=== PATIENT | female | born 1970 | race American Indian/Alaskan Native ===

== ENCOUNTER 2018-11-21 17:41 | Inpatient (IN) | payer MEDICAID ==
--- NOTE | 2018-11-21 18:15 | ED PDOC ---
Arrival/HPI - General Chief Complaint: Shortness Of Breath Time Seen by Provider: 11/21/18 17:44 Historian: Patient - History of Present Illness Narrative History of Present Illness (Text): 11/21/18 18:38 48 y/o female with PMH of HTN, DM presents to the Emergency department sent by PMD Dr. Hicks for evaluation of SOB and peripheral edema x 6 months. Pt arrives with a prescription from Dr. Hicks requesting evaluation and treatment for possible CHF. She saw Dr. Hicks 2 weeks ago for similar complaints, prescribed steroids and HCTZ without relief. Pt states she takes her medications as prescribed. Associated bilateral lower extremity and lower abdomen pitting edema. Denies fever, chills, cough, congestion, chest pain, abdominal pain, nausea, vomiting, headache, vision changes, urinary symptoms, back pain, neck pain, or any other associated symptoms. Past Medical History - Provider Review Nursing Documentation Reviewed: Yes - Infectious Disease Hx of Infectious Diseases: None - Cardiac Hx Cardiac Disorders: Yes Hx Hypertension: Yes - Pulmonary Hx Respiratory Disorders: Yes Hx Pneumonia: Yes - Neurological Hx Neurological Disorder: No - HEENT Hx HEENT Disorder: No - Renal Hx Renal Disorder: No - Endocrine/Metabolic Hx Endocrine Disorders: Yes Hx Diabetes Mellitus Type 2: Yes - Hematological/Oncological Hx Blood Disorders: No - Integumentary Hx Dermatological Disorder: No - Musculoskeletal/Rheumatological Hx Musculoskeletal Disorders: No - Gastrointestinal Hx Gastrointestinal Disorders: Yes Other/Comment: LAP BAND; REMOVED - Genitourinary/Gynecological Hx Genitourinary Disorders: No - Psychiatric Hx Psychophysiologic Disorder: No Hx Substance Use: No - Surgical History Hx Section: Yes Other/Comment: lap band, cyst removal - Anesthesia Hx Anesthesia: No Hx Anesthesia Reactions: No Hx Malignant Hyperthermia: No - Suicidal Assessment Feels Threatened In Home Enviroment: No Family/Social History - Physician Review Nursing Documentation Reviewed: Yes Family/Social History: No Known Family HX Smoking Status: Never Smoked Hx Alcohol Use: No Hx Substance Use: No Allergies/Home Meds Allergies/Adverse Reactions: Allergies azithromycin [From Zithromax Z-Marcello] Allergy (Verified 11/21/18 17:55) ANAPHYLAXIS Home Medications: Home Meds Medication Instructions Recorded Confirmed Albuterol 0.083% [Albuterol 0.083% 3 ml NEB Q6 PRN 11/21/18 11/21/18 Inhal Lu (2.5 mg/3 ml) UD] Albuterol HFA [Ventolin HFA 90 2 puff NEB Q6 PRN 11/21/18 11/21/18 mcg/actuation (8 g)] Enalapril Maleate [Vasotec] 5 mg PO DAILY 11/21/18 11/21/18 Montelukast [Singulair] 10 mg PO HS 11/21/18 11/21/18 amLODIPine [Norvasc] 10 mg PO DAILY 11/21/18 11/21/18 hydroCHLOROthiazide [Hydrodiuril] 25 mg PO DAILY 11/21/18 11/21/18 metFORMIN [glucOPHAGE] 500 mg PO BID 11/21/18 11/21/18 Review of Systems - Review of Systems Constitutional: Fatigue. absent: Fevers Eyes: Normal. absent: Vision Changes, Photophobia ENT: Normal. absent: Sore Throat, Sinus Congestion Respiratory: SOB. absent: Cough, Sputum, Wheezing Cardiovascular: Orthopnea, Other (peripheral edema). absent: Chest Pain, Palpitations, Syncope Gastrointestinal: Other (abdominal swelling). absent: Abdominal Pain, Nausea, Vomiting Genitourinary Female: Normal. absent: Dysuria, Frequency Musculoskeletal: Normal. absent: Arthralgias, Back Pain, Neck Pain, Joint Swelling Skin: Normal. absent: Rash, Cellulitis Neurological: Normal. absent: Headache, Dizziness Physical Exam Vital Signs Reviewed: Yes Vital Signs Temp 11/21/18 17:59 98.4 F Temperature: Afebrile Blood Pressure: Normal Pulse: Regular Respiratory Rate: Normal Appearance: Positive for: Non-Toxic, Uncomfortable, Other (SOB; obese) Pain Distress: None Mental Status: Positive for: Alert and Oriented X 3 - Systems Exam Head: Present: Atraumatic, Normocephalic Pupils: Present: PERRL Extroacular Muscles: Present: EOMI Conjunctiva: Present: Normal Mouth: Present: Moist Mucous Membranes Neck: Present: Normal Range of Motion. No: Meningeal Signs Respiratory/Chest: Present: Decreased Breath Sounds (bilaterally), Rales (bilateral bases). No: Respiratory Distress, Accessory Muscle Use Cardiovascular: Present: Regular Rate and Rhythm, Normal S1, S2, Peripheal Pulses Present Abdomen: Present: Distention (lower abd distention ), Normal Bowel Sounds, Other (lower abdomen pitting edema). No: Tenderness, Peritoneal Signs, Rebound, Guarding Upper Extremity: Present: Normal Inspection, Normal ROM, NORMAL PULSES, Neurovascularly Intact, Capillary Refill < 2s. No: Cyanosis, Edema, Temperature Abnormalties Lower Extremity: Present: Normal Inspection, Edema (bilateral 2+ pitting edema to feet and legs), NORMAL PULSES, Normal ROM, Neurovascularly Intact, Capillary Refill < 2 s. No: Tenderness, Erythema, Deformity, Temperature Abnormalties Neurological: Present: GCS=15, CN II-XII Intact, Speech Normal, Motor Func Grossly Intact, Normal Sensory Function, Gait Normal Skin: Present: Warm, Dry, Normal Color. No: Rashes Psychiatric: Present: Alert, Oriented x 3, Normal Insight, Normal Concentration, Normal Affect, Normal Mood Medical Decision Making ED Course and Treatment: Initial Plan: * CBC, CMP * Coags * Cardiac Iso * BNP * CXR * EKG EKG shows NSR at 96; left atrial enlargement; low voltage QRS; Normal intervals; No STEMI, nonspecific ST/T wave changes; troponin negative 20:34 CXR read as cardiomegaly, no lobar pneumonia by tx Bloodwork reviewed, no leukocytosis; elevated BNP. 40mg Lasix given. Otherwise unremarkable. Dimer negative UA unremarkable Pt continues to be dyspneic but reports mild improvement in symptoms. O2sat in low 90s without oxygen therapy. Will seek admission for further evaluation. 21:55 Spoke with patient's PMD Dr. Hicks who accepted patient for inpatient observation to telemetry floor with diagnosis of dyspnea, elevated BNP, and peripheral edema. Pt updated with change in disposition. Resting comfortably in stretcher with stable vital signs at this time. On 2L NC. - Lab Interpretations Lab Results: 11/21/18 20:00 11/21/18 20:00 Lab Results 11/22/18 08:25: Hemoglobin A1c 7.8 H 11/22/18 08:25: Iron 21 L, TIBC 430, % Saturation 5 L 11/22/18 08:25: Lactate Dehydrogenase 452, Total Creatine Kinase 44, Troponin I 0.01 D, NT-Pro-B Natriuret Pep 421, Triglycerides 77, Cholesterol 124 L, LDL Cholesterol Direct 80, HDL Cholesterol 33, Vitamin B12 646, Folate > 20.0 11/22/18 07:25: POC Glucose (mg/dL) 140 H 11/21/18 21:24: Urine Color Yellow, Urine Appearance Clear, Urine pH 6.5, Ur Specific [place] 1.010, Urine Protein Negative, Urine Glucose (UA) Negative, Urine Ketones Negative, Urine Blood Trace-lysed H, Urine Nitrate Negative, Urine Bilirubin Negative, Urine Urobilinogen 0.2, Ur Leukocyte Esterase Moderate H, Urine RBC 2 - 5 H, Urine WBC 5 - 10 H, Ur Epithelial Cells Many H 11/21/18 20:00: pO2 101 H, VBG pH 7.39, VBG pCO2 65.0 H, VBG HCO3 39.3 H, VBG Total CO2 41.3 H, VBG O2 Sat (Calc) 98.3 H, VBG Base Excess 11.5 H, VBG Pot assium 3.3 L, Sodium 139.0, Chloride 99.0, Glucose 119 H, Lactate 1.1, FiO2 21.0, Venous Blood Potassium 3.3 L 11/21/18 20:00: PT 12.2, INR 1.10, APTT 27.9, D-Dimer, Quantitative 217 11/21/18 20:00: Sodium 138, Chloride 97 L, Potassium 3.5 L, Carbon Dioxide 37 H, Anion Gap 7 L, BUN 14, Creatinine 0.6 L, Est GFR ( Amer) > 60, Est GFR (Non-Af Amer) > 60, Random Glucose 115 H, Calcium 8.7, Magnesium 1.7, Total Bilirubin 0.9, AST 29, ALT 28, Alkaline Phosphatase 64, Lactate Dehydrogenase 506, Total Creatine Kinase 51, Troponin I 0.02, NT-Pro-B Natriuret Pep 535 H, Total Protein 6.4, Albumin 3.4, Globulin 3.1, Albumin/Globulin Ratio 1.1 11/21/18 20:00: WBC 6.4, RBC 4.82, Hgb 11.2 L, Hct 37.7, MCV 78.2 L D, MCH 23.2 L, MCHC 29.7 L, RDW 17.0 H, Plt Count 283, MPV 9.4, Neut % (Auto) 63.6, Lymph % (Auto) 25.9, [place] % (Auto) 9.1 H, Eos % (Auto) 1.1 L, Baso % (Auto) 0.3, Lymph # (Auto) 1.7, [place] # (Auto) 0.6, Eos # (Auto) 0.1, Baso # (Auto) 0.02, Absolute Neuts (auto) 4.04 I have reviewed the lab results: Yes - RAD Interpretation Radiology Orders: 11/21/18 18:14 CHEST PORTABLE [RAD] Stat - EKG Interpretation EKG Interpretation (Text): 11/21/18 20:37 NSR at 96; left atrial enlargement; low voltage QRS; Normal intervals; No STEMI, nonspecific ST/T wave changes Interpreted by ED Physician: Yes Type: 12 lead EKG Disposition/Present on Arrival - Present on Arrival Any Indicators Present on Arrival: No History of DVT/PE: No History of Uncontrolled Diabetes: No Urinary Catheter: No History of Decub. Ulcer: No History Surgical Site Infection Following: None - Disposition Have Diagnosis and Disposition been Completed?: Yes Diagnosis: Dyspnea, Peripheral edema, Hypoxia, Elevated brain natriuretic peptide (BNP) level Disposition: HOSPITALIZED Disposition Time: 21:30 Patient Plan: Admission Patient Problems: Current Active Problems Problem Status Onset Dyspnea Acute Elevated brain natriuretic peptide (BNP) level Acute Hypoxia Acute Peripheral edema Acute Condition: STABLE
--- NOTE | 2018-11-21 19:01 | CARD ---
APPROVED REPORT Date of service: 11/21/2018 EKG Measurement Heart [id number] <Conclusion> Normal sinus rhythm Possible Left atrial enlargement Low voltage QRS Left anterior fascicular block Cannot rule out Anteroseptal infarct, age undetermined Abnormal ECG
[2018-11-21 20:24] LABS: BASO # 0.02 K/mm3 (0.0-2.0); BASO % 0.3 % (0.0-3.0); EOS # 0.1 (0.0-0.7); EOS % 1.1 % (1.5-5.0); HEMOGLOBIN 11.2 g/dL (12.0-16.0); LYMPH # 1.7 (1.2-3.4); LYMPH % 25.9 % (22.0-35.0); MEAN CELL VOLUME 78.2 fl (80.0-105.0); MEAN CORPUSCULAR HEMOGLOBIN 23.2 pg (25.0-35.0); MEAN CORPUSCULAR HGB CONC 29.7 g/dl (31.0-37.0); MEAN PLATELET VOLUME 9.4 fl (7.0-11.0); MONO # 0.6 (0.1-0.6); MONO % 9.1 % (1.0-6.0); RBC 4.82 10^6/uL (3.5-6.1); WHITE BLOOD COUNT 6.4 10^3/uL (4.5-11.0)
[2018-11-21 20:25] LABS: VENOUS BLOOD GAS BASE EXCESS 11.5 mmol/L (0.0-2.0); VENOUS BLOOD GAS PO2 101 mm/Hg (30-55); VENOUS BLOOD PH 7.39 (7.32-7.43)
[2018-11-21 20:31] LABS: ALB/GLOB RATIO 1.1 (1.1-1.8); ALBUMIN 3.4 g/dL (3.0-4.8); ALT/SGPT 28 U/L (7-56); AST/SGOT 29 U/L (14-36); BLOOD UREA NITROGEN 14 mg/dL (7-21); CALCIUM 8.7 mg/dL (8.4-10.5); GFR NON-AFRICAN AMERICAN > 60
[2018-11-21 20:38] LABS: INR 1.1; PARTIAL THROMBOPLASTIN TIME 27.9 Seconds (26.9-38.3); PROTHROMBIN TIME 12.2 SECONDS (9.4-12.5)
[2018-11-21 20:42] LABS: B-TYPE NATRIURETIC PEPTIDE 535 pg/mL (0-450); TROPONIN I 0.02 ng/mL
[2018-11-21 21:28] LABS: PH,URINE 6.5 (4.7-8.0); URINE BILIRUBIN NEGATIVE (NEGATIVE); URINE BLOOD TRACE-LYSED (NEGATIVE); URINE GLUCOSE (UA) NEGATIVE (NEGATIVE); URINE LEUKOCYTE ESTERASE MODERATE Leu/uL (NEGATIVE); URINE PROTEIN NEGATIVE mg/dL (<30 mg/dL); URINE UROBILINOGEN 0.2 E.U./dL (<1 E.U./dL)
[2018-11-21 21:29] LABS: URINE COLOR YELLOW (YELLOW)
[2018-11-21 21:30] LABS: URINE APPEARANCE CLEAR (CLEAR); URINE EPITHELIAL CELLS MANY /hpf (0-5)
[2018-11-21] MEDS ORDERED: Potassium Chloride 20 mEq ER Tab PO STA (22:00)
[2018-11-22] MEDS: Albuterol-Ipratrop 3 mg / 0.5 (3 ml) UD IH SCH ×2 (07:59→14:27)
[2018-11-22] MEDS: Insulin Reg-LOW-Coverage SC SCH ×5 (08:30→22:24)
[2018-11-22 08:49] LABS: HDL CHOLESTEROL 33 mg/dL (29-60); IRON 21 ug/dL (45-180)
[2018-11-22 09:00] LABS: B-TYPE NATRIURETIC PEPTIDE 421 pg/mL (0-450); TROPONIN I 0.01 ng/mL
[2018-11-22 09:03] LABS: % IRON SATURATION 5 % (20-55); TOTAL IRON BINDING CAPACITY 430 ug/dL (265-497)
[2018-11-22 09:06] LABS: LDL CHOLESTEROL 80 mg/dL (0-129)
[2018-11-22] MEDS: Potassium Chloride 20 mEq ER Tab PO SCH (10:24)
[2018-11-22] MEDS: MethylPREDNISolone 40 mg Vial IVP SCH ×2 (10:27→21:31)
[2018-11-22] MEDS: metOLazone 5 MG TAB PO SCH (10:30)
--- NOTE | 2018-11-22 10:32 | RAD ---
Date of service: 11/21/2018 HISTORY: SOB COMPARISON: 07/21/2018 TECHNIQUE: 1 view obtained. FINDINGS: LUNGS: No active pulmonary disease. PLEURA: No significant pleural effusion identified, no pneumothorax apparent. CARDIOVASCULAR: No aortic atherosclerotic calcification present. Moderate cardiomegaly and moderate vascular congestion OSSEOUS STRUCTURES: No significant abnormalities. VISUALIZED UPPER ABDOMEN: Normal. OTHER FINDINGS: None. IMPRESSION: Moderate cardiomegaly and moderate vascular congestion
[2018-11-22] MEDS ORDERED: Potassium Chloride 20 mEq ER Tab PO ONE (12:00)
[2018-11-22 12:58] LABS: FOLATE > 20.0 ng/mL
[2018-11-22] MEDS ORDERED: Albuterol-Ipratrop 3 mg / 0.5 (3 ml) UD IH PRN (15:54)
--- NOTE | 2018-11-22 17:37 | CON ---
DATE: 11/22/2018 PULMONARY CONSULT NOTE REFERRING PHYSICIAN: Valeria Hicks MD REASON FOR CONSULT: Shortness of breath and hypoxia. HISTORY OF PRESENT ILLNESS: This is a 48-year-old female with past medical history significant for hypertension, diabetes, asthma, who presented to emergency room for evaluation of shortness of breath and peripheral edema for the past 6 months. The patient reports that she was seen by primary physician about 2 weeks ago for similar complaints, was given steroids and hydrochlorothiazide, which provided no relief. The patient reports that she has had history of lap-band surgery, which was removed and was pending consult for gastric sleeve surgery when she was noted with generalized edema. The patient reports that she does snore, states she does not have a cough; has some shortness of breath with exertion. PAST MEDICAL HISTORY: As per history of present illness. ALLERGIES: AZITHROMYCIN. FAMILY HISTORY: Father and brother had heart disease. Mother, triple heart bypass. SOCIAL HISTORY: Nonsmoker. No EtOH abuse. No illicit drug use. MEDICATIONS: Reviewed. Tylenol 650 mg every 4 hours p.r.n. fever and pain, DuoNeb 3 mL inhalation every 6 hours, aspirin 81 mg daily, Pepcid 40 mg at bedtime, Lasix 40 mg IV push every 8 hours, Humulin R sliding scale a.c. and at bedtime, lisinopril 5 mg daily, Claritin 10 mg daily, metformin 500 mg twice a day, Solu-Medrol 40 mg every 12 hours, metolazone 5 mg daily, Singulair 10 mg at bedtime, potassium 20 mEq daily, and spironolactone 25 mg twice a day. REVIEW OF SYSTEMS: No headache, rhinitis, cough, chest pain, abdominal pain, nausea, vomiting, diarrhea, or leg pain reported. Reports having bilateral lower extremity edema, abdominal edema. Reports snoring, shortness of breath with exertion. PHYSICAL EXAMINATION GENERAL: No acute distress. VITAL SIGNS: Blood pressure 137/82, pulse 85, temperature 98, oxygen saturation 95%. HEENT: Moist mucous membranes. Mallampati score of 4. NECK: Supple. No JVD. LUNGS: Decreased breath sounds at the bases. Few scattered rhonchi. CARDIOVASCULAR: S1 and S2. ABDOMEN: Soft and nontender. Positive edema. EXTREMITIES: +4 bilateral lower extremity edema. NEUROLOGIC: Awake, alert, verbal; following commands. LABORATORY DATA: Reviewed. WBC 6.4, RBC 4.82, hemoglobin 11.2, hematocrit 37.7, and platelets 283. PT 12.2, INR 1.1, APTT 27.9, D-dimer 217, pO2 of 101. Venous blood gas; pH 7.39, venous blood gas pCO2 of 65, venous blood gas HCO3 of 39.3, and FiO2 of 21. Sodium 138, potassium 3.5, chloride 97, carbon dioxide 37, anion gap 7, BUN 14, creatinine 0.6, GFR greater than 60, POC glucose 140, random glucose 115, and hemoglobin A1c 7.8. Calcium 8.7, magnesium 1.7, iron 21, TIBC 430, percent saturation 5, total bilirubin 0.9. AST 29, ALT 28, alkaline phosphatase 64, lactate dehydrogenase 452, total creatine kinase 44, troponin 0.01, proBNP 421, triglycerides 77, cholesterol 124, LDL cholesterol 80, HDL cholesterol 33, vitamin B12 of 646, folate greater than 20. Urinalysis shows urine blood trace, urine leukocyte esterase moderate, urine RBCs 2-5, urine WBC's 5-10, and urine epithelial cells many. EKG shows normal sinus rhythm, possible left atrial enlargement, low voltage QRS, left anterior fascicular block. Chest x-ray shows moderate cardiomegaly and moderate vascular congestion. Echocardiogram report pending. IMPRESSION AND PLAN: Asthma, hypertension, diabetes mellitus, and possible heart failure. Echocardiogram report pending. Agree with current treatments. Continue antihistamine, diuretics, inhaled bronchodilators, steroids, and leukotriene inhibitors. We will place the patient on Lovenox for deep venous thrombosis prophylaxis. Cardiology followup. We recommend this patient have sleep study as outpatient. The patient reports she recently had pulmonary function test when she was diagnosed with asthma. Head of bed elevated at 45 degrees and fall precautions. The patient was seen and examined with Dr. Zaragoza. Discussed assessment and plan as described above. The patient was seen and examined with Kirby Nuñez, nurse practitioner. Discussed assessment and plan as described above. Thank you for this consult. We will follow with you. Kirby Nuñez APN Donovan Zaragoza MD [facility] # [id number]
--- NOTE | 2018-11-22 19:22 | CARD ---
APPROVED REPORT Date of service: 11/22/2018 EXAM: Two-dimensional and M-mode echocardiogram with Doppler and color Doppler. INDICATION Dyspnea 2D DIMENSIONS Left Atrium (2D)4.7 (1.6-4.0cm)IVSd1.2 (0.7-1.1cm) LVDd4.1 (3.9-5.9cm)PWd1.5 (0.7-1.1cm) LVDs2.8 (2.5-4.0cm)FS (%) 31.4 % LVEF (%)59.7 (>50%) M-Mode DIMENSIONS Aortic Root3.50 (2.2-3.7cm)Aortic Cusp Exc.1.90 (1.5-2.0cm) Aortic Valve AoV Peak Gtkohxll615.0cm/Ronni Peak GR.8mmHg Mitral Valve MV E Swnczmms09.3cm/sMV A Fdrsyhhc127.0cm/sE/A ratio0.7 TDI Lateral E' Peak V6.82cm/sE/Lateral E'14.0E/Medial E'0.0 Pulmonary Valve PV Peak Ksvzbgmk13.2cm/sPV Peak Grad.1mmHg Tricuspid Valve TR Peak Efnljmwv509yg/sRAP VIYOLRVC97pfLyRE Peak Gr.22mmHg [id number] LEFT VENTRICLE The left ventricle is normal size. There is mild to moderate concentric left ventricular hypertrophy. The left ventricular function is normal.EF-55-60% There is normal LV segmental wall motion. Transmitral Doppler flow pattern is Grade III-reversible restrictive diastolic dysfunction. No left ventricle thrombus noted on this study. There is no ventricular septal defect visualized. There is no left ventricular aneurysm. There is no mass noted in the left ventricle. RIGHT VENTRICLE The right ventricle is severely dilated. There is normal right ventricular wall thickness. Systolic function of RV is severely reduced. ATRIA The left atrium is moderately dilated. The right atrium is mildly dilated. The interatrial septum is intact with no evidence for an atrial septal defect. AORTIC VALVE The aortic valve is thickened but opens well. There is trace aortic regurgitation. There is no aortic valvular stenosis. There is no aortic valvular vegetation. MITRAL VALVE The mitral valve is thickened but opens well. Mitral regurgitation is trace to mild. There is no mitral valve stenosis. There is no evidence of mitral valve prolapse. TRICUSPID VALVE The tricuspid valve leaflets are thickened , but open well. There is mild tricuspid regurgitation.RVSP-32 mmof Hg. There is no tricuspid valve stenosis. There is no tricuspid valve prolapse or vegetation. PULMONIC VALVE The pulmonic valve is borderline thickened. There is trace pulmonic valvular regurgitation. There is no pulmonic valvular stenosis. GREAT VESSELS The aortic root is normal in size. The ascending aorta is normal in size. The pulmonary artery is normal. The IVC is normal in size and collapses >50% with inspiration. PERICARDIAL EFFUSION There is no pleural effusion. There is a trace pericardial effusion. <Conclusion> The left ventricle is normal size. There is mild to moderate concentric left ventricular hypertrophy. The left ventricular function is normal.EF-55-60% The right ventricle is severely dilated. There is trace aortic regurgitation. Mitral regurgitation is trace to mild. There is mild tricuspid regurgitation.RVSP-32 mmof Hg. The IVC is normal in size and collapses >50% with inspiration. There is a trace pericardial effusion.
--- NOTE | 2018-11-22 19:51 | CON ---
DATE: 11/22/2018 CONSULT SERVICE: Cardiology. REASON FOR CONSULTATION AND FOLLOWUP: Cardiac evaluation. Admitted with shortness of breath progressively worsening over 6 months and gaining weight and peripheral edema of more than 6 months. Status post gastric sleeve. BRIEF CLINICAL HISTORY: This 48-year-old morbidly obese female with past medical history significant for hypertension and diabetes came to the emergency room after being sent by Dr. Hicks's office because of progressively worsening shortness of breath and gaining weight. The patient was sent [address] Hicks's office and given some steroid and hydrochlorothiazide, but the patient was still gaining weight and she decided to come to the emergency room after calling Dr. Hicks. Denies any chest pain. Denies any palpitation, but complained of shortness of breath. PAST MEDICAL HISTORY: Significant for diabetes, hypertension, hyperlipidemia, morbid obesity, status post gastric sleeve in July. Since then, the patient rather than losing weight is gaining more weight. PAST SURGICAL HISTORY: Significant for gastric sleeve operation in July. FAMILY HISTORY: Nothing significant for coronary artery disease. RECENT CARDIAC WORKUP: The patient was seen by Dr. Salo Trimble, tangible personal property appraiser at [facility] and preop evaluation, the patient had an echo done, but a stress test could not be done and according to her, the echo shows essentially normal and she cleared the patient to go for surgery. CURRENT MEDICATION: The patient at home was taking hydrochlorothiazide 25 mg daily, enalapril 5 mg daily, albuterol inhaler 2 puffs daily, metformin 500 mg twice a day, Singulair 10 mg daily and amlodipine 10 mg daily. REVIEW OF SYSTEMS: As per HPI. PHYSICAL EXAMINATION: GENERAL: Height of the patient 5 feet 3 inches. Weight of the patient 340 pounds. Body mass index 60 kg/m2. VITAL SIGNS: Temperature afebrile. Heart rate 88 and blood pressure 142/85. HEENT: PERRLA. Extraocular muscles intact. NECK: Supple. No carotid bruit. No thyromegaly. CHEST: Clear to auscultation. EXTREMITIES: 2 to 3+ pedal edema noted. LABORATORY DATA: EKG shows normal sinus at the rate of 96, poor RR progression. Blood workup; WBC 6.4, hemoglobin 11.2, hematocrit 37.7 and platelet count 283. Chemistry shows sodium 138, potassium 3.5, chloride 97, carbon dioxide 37, anion gap of 7, BUN 14, creatinine 0.6 and troponin 0.01 negative. IMPRESSION: A 48-year-old morbidly obese female, body mass index 60 kg/m2 admitted with generalized anasarca after having gastric sleeve operation and progressively worsening shortness of breath, BNP marginally elevated, but the patient has generalized anasarca. Hypertension, hyperlipidemia and diabetes. RECOMMENDATION: We will aggressively diurese the patient and echo to assess LV function, lipid profile, TSH and hemoglobin A1c. Supplement potassium as needed and monitor closely. We will add also Zaroxolyn and increase the Lasix to every 8 hours and get an echo. Once the patient becomes euvolemic consider stress test before she goes home. We will get also an echo to assess LV function. We will give an additional K-Dur and the patient. We will give aggressive diuresis with Zaroxolyn and potassium and with Lasix. Further recommendation depending upon the hospital course. We will follow with you. Thank you Dr. Hicks for providing us the opportunity in taking care of the patient, Kadi Pedroza. Donovan Kennedy MD
[2018-11-22] MEDS: Arformoterol 15 mcg/2 ml Inh Sol IH SCH (21:10)
[2018-11-22] MEDS: Budesonide 0.5 mg/2 ml Inhal Susp UD IH SCH (21:10)
[2018-11-23 07:18] LABS: HEMOGLOBIN 11.9 g/dL (12.0-16.0); MEAN CELL VOLUME 78.3 fl (80.0-105.0); MEAN CORPUSCULAR HEMOGLOBIN 22.7 pg (25.0-35.0); MEAN PLATELET VOLUME 10.1 fl (7.0-11.0); RBC 5.25 10^6/uL (3.5-6.1); WHITE BLOOD COUNT 6.4 10^3/uL (4.5-11.0)
[2018-11-23 07:34] LABS: BLOOD UREA NITROGEN 20 mg/dL (7-21); CALCIUM 8.8 mg/dL (8.4-10.5); GFR NON-AFRICAN AMERICAN > 60
[2018-11-23] MEDS: Budesonide 0.5 mg/2 ml Inhal Susp UD IH SCH ×2 (08:00→20:13)
[2018-11-23] MEDS: Arformoterol 15 mcg/2 ml Inh Sol IH SCH ×2 (08:00→20:13)
--- NOTE | 2018-11-23 08:37 | CP.PCM.PN ---
Subjective - Date & Time of Evaluation Date of Evaluation: 11/23/18 Time of Evaluation: 06:35 - Subjective Subjective: Awake, alert, no distress Reason for consultation and follow up: Cardiac evaluation of worsening shortness of breath, gaining weight and peripheral edema, history of hypertension, diabetes, status post gastric sleeve. Seen and examined by me and Dr. Kennedy Objective - Vital Signs/Intake and Output Vital Signs (last 24 hours): Temp Pulse Resp BP Pulse Ox 97.8 F 99 H 20 121/74 94 L 11/23/18 05:51 11/23/18 05:51 11/23/18 05:51 11/23/18 05:51 11/23/18 05:51 Intake and Output: 11/23/18 11/23/18 06:59 18:59 Intake Total 600 Output Total 3 Balance 597 - Medications Medications: Current Medications Acetaminophen (Tylenol 325mg Tab) 650 mg PO Q4H PRN PRN Reason: pain fever Albuterol/Ipratropium (Duoneb 3 Mg/0.5 Mg (3 Ml) Ud) 3 ml IH [id number] PRN PRN Reason: Shortness of Breath Arformoterol Tartrate (Brovana) 15 mcg IH [id number] [facility] Last Admin: 11/23/18 08:00 Dose: 15 mcg Aspirin (Ecotrin) 81 mg PO DAILY [facility] Last Admin: 11/22/18 10:26 Dose: 81 mg Budesonide (Pulmicort Respules) 0.5 mg IH [id number] [facility] Last Admin: 11/23/18 08:00 Dose: 0.5 mg Enoxaparin Sodium (Lovenox) 40 mg SC DAILY [facility]; Protocol Famotidine (Pepcid) 40 mg PO HS [facility] Last Admin: 11/22/18 21:30 Dose: 40 mg Furosemide (Lasix) 40 mg IVP 0600,1400,2200 [facility] Last Admin: 11/23/18 05:16 Dose: 40 mg Insulin Human Regular (Humulin R Low) 0 units SC [facility]; Protocol Last Admin: 11/22/18 22:24 Dose: Not Given Lisinopril (Zestril) 5 mg PO DAILY [facility] Last Admin: 11/22/18 10:25 Dose: 5 mg Loratadine (Claritin) 10 mg PO DAILY [facility] Last Admin: 11/22/18 10:26 Dose: 10 mg Metformin HCl (Glucophage) 500 mg PO BID [facility] Last Admin: 11/22/18 17:57 Dose: 500 mg Methylprednisolone (Solu-Medrol) 40 mg IVP Q12 [facility] Last Admin: 11/22/18 21:31 Dose: 40 mg Metolazone (Zaroxolyn) 5 mg PO DAILY [facility] Stop: 11/24/18 23:59 Last Admin: 11/22/18 10:30 Dose: 5 mg Montelukast Sodium (Singulair) 10 mg PO HS [facility] Last Admin: 11/22/18 21:30 Dose: 10 mg Potassium Chloride (K-Dur 20 Meq Er Tab) 20 meq PO DAILY [facility] Last Admin: 11/22/18 10:24 Dose: 20 meq Spironolactone (Aldactone) 25 mg PO BID [facility] Last Admin: 11/22/18 17:55 Dose: 25 mg - Labs Labs: 11/23/18 07:00 11/23/18 07:00 PT 12.2 SECONDS (9.4-12.5) 11/21/18 20:00 INR 1.10 11/21/18 20:00 APTT 27.9 Seconds (26.9-38.3) 11/21/18 20:00 - Constitutional Appears: Non-toxic, No Acute Distress - Head Exam Head Exam: NORMAL INSPECTION, NORMOCEPHALIC - Eye Exam Eye Exam: Normal appearance Pupil Exam: NORMAL ACCOMODATION - ENT Exam ENT Exam: Mucous Membranes Moist, Normal Exam - Respiratory Exam Respiratory Exam: Decreased Breath Sounds, NORMAL BREATHING PATTERN - Cardiovascular Exam Cardiovascular Exam: REGULAR RHYTHM, +S1, +S2 - GI/Abdominal Exam GI & Abdominal Exam: Soft, Normal Bowel Sounds - Extremities Exam Extremities Exam: Full ROM Additional comments: 2+edema - Neurological Exam Neurological Exam: Alert, Awake, Oriented x3 - Psychiatric Exam Psychiatric exam: Normal Affect, Normal Mood - Skin Skin Exam: Dry, Normal Color, Warm Assessment and Plan - Assessment and Plan (Free Text) Assessment: A 48 year old morbidly obese female who came in to the ER due progressive shortness of breath and peripheral edema for the past 6 months. She was sent by Dr. Hicks for further evaluation and treatment. History of hypertension, diabetes, hyperlipidemia, morbid obesity post gastric sleeve last July 2018. However, since then she was gaining weight with generalized anasarca. Echo done and showed mild to moderate concentric LVH, LVEF 55-60%,severely dilated RV,trace aortic regurgitation, trace to mild mitral regurgitation, mild tricuspid regurgitation, RVSP 32mmHg. Chest X ray showed moderate cardiomegaly, moderate vascular congestion. Generalized anasarca post gastric sleeve. Aggressively diurese. Plan: Feels better, denies shortness of breath Continue to diurese Tachycardia, will start low dose betablocker Blood pressure stable On ASA 81 mg daily,Lovenox 40 mg daily, Lasix 40 mg TID Lisinopril 5 mg daily, Solumedrol 40 mg every 12 hours Zaroxylyn 5m g daily, Kdur 20 meq daily, Aldactone 25 mg TID Continue current treatment Continue current medications Pulmonary on consult Will follow up Plan and treatment discussed with Dr. Kennedy
[2018-11-23] MEDS: Insulin Reg-LOW-Coverage SC SCH ×4 (09:06→21:09)
[2018-11-23] MEDS: MethylPREDNISolone 40 mg Vial IVP SCH ×2 (10:58→21:59)
[2018-11-23] MEDS: Enoxaparin 40 mg Syringe SC SCH (10:58)
[2018-11-23] MEDS: Potassium Chloride 20 mEq ER Tab PO SCH (10:58)
[2018-11-23] MEDS: metOLazone 5 MG TAB PO SCH (11:47)
--- NOTE | 2018-11-23 12:59 | PN ---
DATE: 11/23/2018 PULMONARY PROGRESS NOTE REFERRING PHYSICIAN: Valeria Hicks MD SUBJECTIVE: The patient is seen sitting up in chair. Reports feeling slightly better today, still having shortness of breath with exertion. No headache, rhinitis, cough, chest pain, abdominal pain, nausea, vomiting, diarrhea, or leg pain reported. OBJECTIVE GENERAL: No acute distress. VITAL SIGNS: Blood pressure 121/74, pulse 99, temperature 97.8 and oxygen saturation 94% on nasal cannula. HEENT: Moist mucous membranes. Mallampati score of 4. NECK: Supple. No JVD. LUNGS: Few scattered rhonchi. Decreased breath sounds at bases. CARDIOVASCULAR: S1 and S2. ABDOMEN: Soft and nontender. Positive edema. EXTREMITIES: Bilateral lower extremity edema. NEUROLOGIC: Awake, alert, verbal. Following commands. MEDICATIONS: Reviewed. Tylenol 650 mg every 4 hours p.r.n. pain and fever, DuoNeb 3 mL inhalation every 6 hours p.r.n., Brovana 15 mcg inhalation every 12 hours, aspirin 81 mg daily, Pulmicort 0.5 mg inhalation every 12 hours, Lovenox 40 mg subcutaneously daily, Pepcid 40 mg at bedtime, Lasix 40 mg 3 times a day, Humulin R sliding scale a.c. and at bedtime, lisinopril 5 mg daily, Claritin 10 mg daily, metformin 500 mg twice a day, Solu-Medrol 40 mg every 12 hours, metolazone 5 mg daily, metoprolol succinate 25 mg twice a day, Singulair 10 mg at bedtime, potassium chloride 20 mEq daily, and spironolactone 25 mg twice a day. LABORATORY DATA: Reviewed. WBC 6.4, RBC 5.25, hemoglobin 11.9, hematocrit 41.1, and platelets 317. Sodium 138, potassium 4.2, chloride 91, carbon dioxide 40, anion gap 11, BUN 20, creatinine 0.8, GFR greater than 60, POC glucose 169, random glucose 170, calcium 8.8, phosphorus 4.9, and magnesium 1.6. Echocardiogram shows mild to moderate concentric left ventricular hypertrophy, left ventricular function is normal. Ejection fraction is 55% to 60%. Right ventricle r is severely dilated, trace aortic regurgitation, mitral regurgitation is trace to mild, mild tricuspid regurgitation, right ventricular systolic pressure 32%, trace pericardial effusion. IMPRESSION AND PLAN: Asthma, hypertension, diabetes mellitus, diastolic dysfunction, mildly elevated PA pressure with new diagnosis of asthma as reported by the patient. Need to evaluate is this part of diastolic dysfunction or possible thromboembolic disease. We will order Venous Doppler to rule out deep venous thrombosis. We will order VQ scan to rule out thromboembolic disease. Continue inhaled bronchodilators, diuretics, antihistamines, leukotriene inhibitors and steroids. Continue deep venous thrombosis prophylaxis and gastric prophylaxis. We recommended this patient has sleep study has outpatient. We will need to repeat pulmonary function test as outpatient. Fall precaution. This patient was seen and examined with Dr. Zaragoza. Discussed assessment and plan as described above. This patient was seen and examined with Kirby Nuñez, nurse practitioner. Discussed assessment and plan as described above. Thank you for this consult and we will follow with you. Kirby Nuñez APN Donovan Zaragoza MD [facility]
--- NOTE | 2018-11-23 13:45 | PN ---
DATE: 11/23/2018 The patient is a 48-year-old female. The patient was seen and examined at bedside on 11/23/2018. SUBJECTIVE: Looking comfortable.. No fever. No chills. No hematuria. No hematochezia. Sleepy, arousable, but still has swelling of the legs and still heavy shortness of breath. PHYSICAL EXAMINATION: VITAL SIGNS: Temperature 97.8, pulse 99, respiratory rate 20, blood pressure 120/74, pulse oximetry 94%. HEENT: Head; normocephalic and atraumatic. Eyes; PERRLA. Extraocular muscles are intact. Conjunctivae clear. Nose patent. Mucous membranes moist. NECK: Supple. No carotid bruit. No JVD or thyromegaly. CHEST: Bilaterally symmetrical. HEART: S1 and S2 positive. LUNGS: Clear to auscultation. ABDOMEN: Soft. Bowel sounds present. No organomegaly. EXTREMITIES: No edema. No cyanosis. NEUROLOGIC: The patient is awake and alert. Moving all four extremities. No focal deficits. MEDICATIONS: Tylenol, DuoNeb, Brovana, Ecotrin, Pulmicort, Lovenox, Lasix, Zestril, Claritin, Glucophage, Solu-Medrol, Zaroxolyn, Singulair, potassium and Spironolactone. LABORATORY DATA: White blood cell is 6.4, hemoglobin 11.9, hematocrit 41.1, platelet let 317. Sodium 130, potassium 4.2, BUN 20, creatinine 0.8, glucose 170. ASSESSMENT AND PLAN: Ms. Kadi Pedroza is a 48-year-old lady with anemia, hypochloremia, hyperglycemia, came with swelling of the body, shortness of breath, dyspnea that is progressing, history of hypertension, diabetes mellitus, hypercholesteremia, morbid obesity. Waiting for gastric surgery. Cardiology is on the case. I have discussion done with Dr. Kennedy. The patient has tachycardia, started low dose of beta blockers. Continue aspirin, enalapril, Zaroxolyn. Pulmonary is on the case. Out of bed, physical therapy, repeat labs. We will followup. Valeria Hicks MD MTDD
--- NOTE | 2018-11-23 15:17 | NM ---
Date of service: 11/23/2018 COMPARISON: Portable chest 11/21/2018 TECHNIQUE: 30.1 mCi technetium 99-m DTPA aerosol. 4.3 mCI technetium 99-m MAA administered intravenously. FINDINGS: VENTILATION COMPONENT: Normal. PERFUSION COMPONENT: Normal. IMPRESSION: Lowprobability ventilation perfusion scan for pulmonary embolism.
--- NOTE | 2018-11-23 15:17 | US ---
HISTORY: Leg pain and swelling. Evaluate for DVT PHYSICIAN(S): Serafin Cooper MD. TECHNIQUE: Duplex sonography and color-flow Doppler with graded compression were used to evaluate the deep venous systems of both lower extremities. The exam is somewhat limited by edema FINDINGS: The visualized deep venous systems of both lower extremities are sonographically normal and compressible. Normal wave forms and augmentation are seen. There is no sonographic evidence for deep venous thrombosis in the visualized segments of both lower extremities. IMPRESSION: No sonographic evidence for deep venous thrombosis in the visualized segments of both lower extremities.
[2018-11-24] MEDS: Budesonide 0.5 mg/2 ml Inhal Susp UD IH SCH ×2 (07:26→19:21)
[2018-11-24] MEDS: Arformoterol 15 mcg/2 ml Inh Sol IH SCH ×2 (07:26→19:21)
[2018-11-24 07:35] LABS: HEMOGLOBIN 13.2 g/dL (12.0-16.0); MEAN CELL VOLUME 78.2 fl (80.0-105.0); MEAN CORPUSCULAR HGB CONC 29.4 g/dl (31.0-37.0); MEAN PLATELET VOLUME 10.1 fl (7.0-11.0); RBC 5.74 10^6/uL (3.5-6.1); WHITE BLOOD COUNT 6.5 10^3/uL (4.5-11.0)
--- NOTE | 2018-11-24 07:51 | CP.PCM.PN ---
Subjective - Date & Time of Evaluation Date of Evaluation: 11/24/18 Time of Evaluation: 06:30 - Subjective Subjective: Awake, alert, no distress Reason for consultation and follow up: Cardiac evaluation of worsening shortness of breath, gaining weight and peripheral edema, history of hypertension, diabetes, status post gastric sleeve. Seen and examined by me and Dr. Kennedy Objective - Vital Signs/Intake and Output Vital Signs (last 24 hours): Temp Pulse Resp BP Pulse Ox 98.3 F 90 21 138/78 94 L 11/24/18 06:00 11/24/18 06:00 11/24/18 06:00 11/24/18 06:00 11/24/18 06:00 Intake and Output: 11/24/18 11/24/18 06:59 18:59 Intake Total 4380 Balance 4380 - Medications Medications: Current Medications Acetaminophen (Tylenol 325mg Tab) 650 mg PO Q4H PRN PRN Reason: pain fever Albuterol/Ipratropium (Duoneb 3 Mg/0.5 Mg (3 Ml) Ud) 3 ml IH [id number] PRN PRN Reason: Shortness of Breath Arformoterol Tartrate (Brovana) 15 mcg IH [id number] [facility] Last Admin: 11/24/18 07:26 Dose: 15 mcg Aspirin (Ecotrin) 81 mg PO DAILY [facility] Last Admin: 11/23/18 10:57 Dose: 81 mg Budesonide (Pulmicort Respules) 0.5 mg IH [id number] [facility] Last Admin: 11/24/18 07:26 Dose: 0.5 mg Enoxaparin Sodium (Lovenox) 40 mg SC DAILY [facility]; Protocol Last Admin: 11/23/18 10:58 Dose: 40 mg Famotidine (Pepcid) 40 mg PO HS [facility] Last Admin: 11/23/18 21:59 Dose: 40 mg Furosemide (Lasix) 40 mg IVP 0600,1400,2200 [facility] Last Admin: 11/24/18 05:32 Dose: 40 mg Insulin Human Regular (Humulin R Low) 0 units SC [facility]; Protocol Last Admin: 11/23/18 21:09 Dose: Not Given Lisinopril (Zestril) 5 mg PO DAILY [facility] Last Admin: 11/23/18 10:58 Dose: 5 mg Loratadine (Claritin) 10 mg PO DAILY [facility] Last Admin: 11/23/18 10:57 Dose: 10 mg Metformin HCl (Glucophage) 500 mg PO BID [facility] Last Admin: 11/23/18 17:46 Dose: 500 mg Methylprednisolone (Solu-Medrol) 40 mg IVP Q12 [facility] Last Admin: 11/23/18 21:59 Dose: 40 mg Metolazone (Zaroxolyn) 5 mg PO DAILY [facility] Stop: 11/24/18 23:59 Last Admin: 11/23/18 11:47 Dose: 5 mg Metoprolol Tartrate (Lopressor) 25 mg PO BID [facility] Last Admin: 11/23/18 17:46 Dose: 25 mg Montelukast Sodium (Singulair) 10 mg PO HS [facility] Last Admin: 11/23/18 21:59 Dose: 10 mg Potassium Chloride (K-Dur 20 Meq Er Tab) 20 meq PO DAILY [facility] Last Admin: 11/23/18 10:58 Dose: 20 meq Spironolactone (Aldactone) 25 mg PO BID [facility] Last Admin: 11/23/18 18:44 Dose: 25 mg - Labs Labs: 11/24/18 07:00 11/23/18 07:00 PT 12.2 SECONDS (9.4-12.5) 11/21/18 20:00 INR 1.10 11/21/18 20:00 APTT 27.9 Seconds (26.9-38.3) 11/21/18 20:00 - Constitutional Appears: Non-toxic, No Acute Distress - Head Exam Head Exam: NORMAL INSPECTION, NORMOCEPHALIC - Eye Exam Eye Exam: Normal appearance Pupil Exam: NORMAL ACCOMODATION - ENT Exam ENT Exam: Mucous Membranes Moist, Normal Exam - Respiratory Exam Respiratory Exam: Decreased Breath Sounds, Clear to Ausculation Bilateral, NORMAL BREATHING PATTERN - Cardiovascular Exam Cardiovascular Exam: REGULAR RHYTHM, +S1, +S2 - GI/Abdominal Exam GI & Abdominal Exam: Soft, Normal Bowel Sounds - Extremities Exam Extremities Exam: Full ROM Additional comments: 1-2+edema - Neurological Exam Neurological Exam: Alert, Awake, Oriented x3 - Psychiatric Exam Psychiatric exam: Normal Affect, Normal Mood - Skin Skin Exam: Dry, Normal Color, Warm Assessment and Plan - Assessment and Plan (Free Text) Assessment: A 48 year old morbidly obese female who came in to the ER due progressive shortness of breath and peripheral edema for the past 6 months. She was sent by Dr. Hicks for further evaluation and treatment. History of hypertension, diabetes, hyperlipidemia, morbid obesity post gastric sleeve last July 2018. However, since then she was gaining weight with generalized anasarca. Echo done and showed mild to moderate concentric LVH, LVEF 55-60%,severely dilated RV,trace aortic regurgitation, trace to mild mitral regurgitation, mild tricuspid regurgitation, RVSP 32mmHg. Chest X ray showed moderate cardiomegaly, moderate vascular congestion. Generalized anasarca post gastric sleeve. Aggressively diurese. Tachycardia, on betablocker. For possible revision of gastric sleeve. Cleared with high risk considering co morbidities. Plan: No distress,Feels better, denies shortness of breath Continue to diurese Started lLopressor for tachycardia, improved, now NSR 80-90's Blood pressure stable On ASA 81 mg daily,Lovenox 40 mg daily, Lasix 40 mg TID Lisinopril 5 mg daily, Solumedrol 40 mg every 12 hours Zaroxylyn 5m g daily, Kdur 20 meq daily, Aldactone 25 mg TID Lopressor 25 mg BID Continue current treatment Continue current medications Pulmonary on consult Cleared for future bariatic sleeve revision with high risk Will follow up Plan and treatment discussed with Dr. Kennedy
[2018-11-24 07:53] LABS: BLOOD UREA NITROGEN 30 mg/dL (7-21); CALCIUM 9.5 mg/dL (8.4-10.5); GFR NON-AFRICAN AMERICAN 59
[2018-11-24] MEDS: MethylPREDNISolone 40 mg Vial IVP SCH ×2 (10:11→21:49)
[2018-11-24] MEDS: Enoxaparin 40 mg Syringe SC SCH (10:12)
[2018-11-24] MEDS: metOLazone 5 MG TAB PO SCH (10:12)
[2018-11-24] MEDS: Potassium Chloride 20 mEq ER Tab PO SCH (10:12)
[2018-11-24] MEDS: Insulin Reg-LOW-Coverage SC SCH ×4 (10:12→22:30)
--- NOTE | 2018-11-24 12:57 | PN ---
DATE: 11/24/2018 REFERRING PHYSICIAN: Valeria Hicks MD SUBJECTIVE: The patient is seen sitting up in chair in room, no acute distress. No overnight events reported. Reports that she still gets shortness of breath with exertion. No headache, rhinitis, cough, chest pain, abdominal pain, nausea, vomiting, diarrhea, leg pain or leg swelling reported. OBJECTIVE: VITAL SIGNS: Blood pressure 138/78, pulse 86, temperature 98.3 and oxygen saturation 94% on nasal cannula. GENERAL: No acute distress. HEENT: Moist mucous membranes. Mallampati score of 4. NECK: Supple. No JVD. LUNGS: Scattered rhonchi bilaterally. CARDIOVASCULAR: S1 and S2. ABDOMEN: Soft and nontender. EXTREMITIES: Bilateral lower extremity edema decreasing. NEUROLOGIC: Awake, alert, verbal. Following commands. MEDICATIONS: Reviewed. Tylenol 650 mg every 4 hours p.r.n. fever and pain, DuoNeb 3 mL inhalation every 6 hours p.r.n., Brovana 15 mcg every 12 hours, aspirin 81 mg daily, Pulmicort 3.5 mg inhalation every 12 hours, Lovenox 40 mg subcutaneously daily, Pepcid 40 mg at bedtime, Lasix 40 mg IV push 3 times a day, Lasix 40 mg p.o. twice a day to start tomorrow, Humulin R sliding scale before meals and at bedtime, lisinopril 5 mg daily, Claritin 10 mg daily, metformin 500 mg twice a day, Solu-Medrol 40 mg every 12 hours, metolazone 5 mg p.o. daily, metoprolol tartarate 25 mg twice a day, Singulair 10 mg at bedtime, potassium chloride 20 mEq daily, and spironolactone 25 mg twice a day. LABORATORY DATA: Reviewed. WBC 6.5, RBC 5.74, hemoglobin 13.2, hematocrit 44.9, and platelets 338. Sodium 138, potassium 4, chloride 84, carbon dioxide 46, anion gap 12, BUN 13, creatinine 1, GFR greater than 60, POC glucose 142, random glucose 145, calcium 9.5, magnesium 1.8. Urine culture positive for Klebsiella oxytoca. Ventilation perfusion scan low probability for pulmonary embolism. Extremity ultrasound, no sonographic evidence of deep venous thrombosis to bilateral lower extremity. IMPRESSION AND PLAN: Asthma, hypertension, diabetes mellitus, diastolic dysfunction, mildly elevated pulmonary artery pressure, newly diagnosed asthma. The patient with positive urine culture urinary tract infection. We will place the patient on Bactrim DS 1 tab twice a day. We will decrease Solu-Medrol to 20 mg every 12 hours. Continue inhaled bronchodilators, antihistamines, and leukotriene inhibitors. Continue Cardiology followup. Continue deep venous thrombosis prophylaxis and gastric prophylaxis. We recommend the patient have sleep study as outpatient as we do suspect sleep apnea in this patient. We will need to repeat pulmonary function test as outpatient. Fall precaution. This patient was seen and examined with Dr. Zaragoza. Discussed assessment and plan as described above. This patient was seen and examined with Kirby Nuñez, nurse practitioner. Discussed assessment and plan as described above. Thank you for this consult. We will follow with you. Kirby Nuñez APN Donovan Zaragoza MD [facility]
[2018-11-24] MEDS: Tmp-Smz 800 mg-160 mg DS Tab PO SCH (17:44)
--- NOTE | 2018-11-24 17:49 | PN ---
DATE: 11/24/[address] Hicks. ALLERGIES: AZITHROMYCIN. SUBJECTIVE: The patient was admitted with dyspnea, peripheral edema, and hypoxia. PAST MEDICAL HISTORY: The patient has asthma, hypertension, type 2 diabetes, morbid obesity. seen the patient today. The patient was up in chair. Alert and oriented, appears comfortable. She was wearing O2 nasal cannula at 2 liters continuously. The patient denies chest pain, palpitations, heart burn, abdominal pain, joint pain. PHYSICAL EXAMINATION: VITAL SIGNS: Temperature 98.3, pulse 86, blood pressure 138/78, respiratory rate is 21, oxygen saturation rating low at 94%, and O2 at nasal cannula 2 liters. GENERAL APPEARANCE: As stated before. The patient appears to be in no acute distress. Does have dyspnea with exertion. HEENT: Normocephalic. PERRLA. NECK: Supple. Normal inspection. RESPIRATORY: Clear to auscultation. CARDIOVASCULAR: S1 and S2. Regular rhythm. No murmur. No gallop. No JVD. GI/ABDOMEN: Distended, soft. No tenderness, or guarding. PERIPHERAL VASCULAR: Full range in motion. No joint swelling. No calf tenderness. No edema noted today. NEUROLOGIC: The patient is alert and oriented x3. Cranial nerves II through XII intact. CURRENT MEDICATIONS: The patient is taking acetaminophen 320 mg every 4 hours p.r.n., albuterol DuoNeb 0.5 mg 3 mL every 6 hours p.r.n. for shortness of breath, Brovana 15 mcg every 12 hours, aspirin 81 mg daily, budesonide 0.5 mg every 12 hours, Lovenox sodium 40 mg prophylactically for DVT, Pepcid 40 mg p.o. at bedtime, Lasix 40 mg IV push three times a day, presently has a.c. and at bedtime Accu-Check for insulin coverage, Zestril 5 mg p.o. daily, Claritin 10 mg p.o. daily, metformin 500 mg p.o twice a day, Solu-Medrol 20 mg IV push every 12 hours, Zaroxolyn 5 mg p.o. daily, Lopressor 25 mg p.o. b.i.d., montelukast sodium 10 mg p.o. at bedtime, K-Dur 20 mEq p.o. daily, Aldactone 25 mg twice a day, Bactrim 1 tablet p.o. b.i.d. prophylactically for UTI Klebsiella microorganisms. ASSESSMENT AND PLAN: Dyspnea with exertion, urinary tract infection, hypoxia. The patient was seen by cardiology and pulmonology. The patient will continue Zaroxolyn 5 mg daily, K-Dur, and Lasix. We will monitor weight daily. Hypoxia, I and O of patient on 11/24/2018, intake was 4380 mL, output was 600 mL, balance was 3780 mL. The patient's weight on 11/23/2018 was 347, current weight is 316. We will follow up. PT IS SEEN AND EXAMINED AT BED SIDE LATE EVENING , NO CHANGE OF STATUS , AGREED ALL ABOVE , D/D WITH RETAIL FIELD REPRESENTATIVE , PT AND STAFF , WILL F/U Rangel Joyce APN Valeria Hicks MD [facility]
--- NOTE | 2018-11-24 18:34 | PQF ---
PROVIDER RESPONSE TEXT: Pt. Admitted with Right heart failure and diastolic Dysfunction, CHF with preserved LV systolic Funct ion, and Anasarca. REVIEWER QUERY TEXT: Rule Out Condition Clarification Pt has documented noted as ?rule out? or similar terminology such as suspected, pro bable, etc. Please clarify status of this condition: -Patient has condition -Condition was ruled out Please provide corresponding diagnosis for patient's clinical picture and associated treatment -Patient had condition which is now resolved -Other (please specify) -Clinically unable to determine -Unknown The patient's Clinical Indicators include: Patient admitted for likely asthma exacerbation. Results of CXR, BNP, treatment noted. Echo showing preserved LVF. Please document specifically if CHF was present, ruled out, undetermined. Query created by: Kassie Albright 11/24/2018 7:12 AM Electronically signed by: Donovan Kennedy 11/24/2018 6:32 PM
[2018-11-24 22:01] VITALS: RESP 20
[2018-11-25] MEDS: Budesonide 0.5 mg/2 ml Inhal Susp UD IH SCH (07:33)
[2018-11-25] MEDS: Arformoterol 15 mcg/2 ml Inh Sol IH SCH (07:33)
[2018-11-25 07:50] VITALS: PULSE 77; TEMP 97.7; O2SAT 95
[2018-11-25] MEDS: Insulin Reg-LOW-Coverage SC SCH ×2 (08:15→12:39)
[2018-11-25] MEDS: Potassium Chloride 20 mEq ER Tab PO SCH (10:07)
[2018-11-25] MEDS: MethylPREDNISolone 40 mg Vial IVP SCH (10:08)
[2018-11-25] MEDS: Enoxaparin 40 mg Syringe SC SCH (10:10)
[2018-11-25] MEDS: Tmp-Smz 800 mg-160 mg DS Tab PO SCH (10:14)
[2018-11-25 10:15] VITALS: BP 152/90
[2018-11-25] MEDS ORDERED: Magnesium Chloride 64 mg ER Tab PO SCH (13:30)
--- NOTE | 2018-11-25 20:02 | PN ---
DATE: 11/25/2018 SUBJECTIVE: The patient denies any chest pain or shortness of breath. PHYSICAL EXAMINATION: VITAL SIGNS: Blood pressure 152/93, heart rate 67, temperature 97.7, respirations 20. HEENT: Head normocephalic. CHEST: Clear. HEART: S1 and S2. Regular. EXTREMITIES: Trace leg edema. LABORATORY DATA: Today's blood sugar is 162 and 140 respectively. Magnesium level was 1.6 a few days ago. Venous Doppler of the lower extremities, no evidence of DVT. Echocardiograph study revealed normal ejection fraction, left ventricular diastolic dysfunction. Ventilation perfusion scan, low probability for PE. ASSESSMENT: 1. Morbid obesity. 2. Diastolic heart failure. 3. Uncontrolled hypertension. 4. Uncontrolled diabetes mellitus. 5. Hypomagnesemia. RECOMMENDATIONS: The patient can be discharged from the cardiac point on Aldactone, Bactrim, aspirin, K-Dur, oral Lasix, and Zestril. I will add Slow-Mag at one tablet daily. Follow up with our plumber pipe fitting, Dr. Kennedy. Scott Dickerson MD
--- NOTE | 2018-11-28 17:46 | PQF ---
PROVIDER RESPONSE TEXT: Acute bronchitis REVIEWER QUERY TEXT: Asthma Specificity and Type Physician?s Documentation Request This Form is Not a Permanent Document in the Medical Record Pt Name: NEELA SKINNER MR #: [id number] Payor: MEDICAID HMO Unit/Bed: [id number] Adm Date: 11/22/2018 1:43:00 PM Reviewer: Nataliya Mabry Ext. Query Date: 11/28/2018 3:37:49 PM Asthma Specificity and Type [id number] By submitting this query, we are merely seeking further clarification of documentation to accurately reflect all conditions that you are monitoring, evaluating, treating or that extend the hospitalizati on or utilize additional resources of care. Please utilize your independent clinical judgment when ad dressing the question(s) below. Dear Doctor Donovan Zaragoza, The patient?s Clinical Indicators include: Please see query. Thank you. Asthma is documented in the Medical Record. Please specify the type and severity of asthma and indic ate if this is associated with exacerbation or status asthmaticus. Such as: -- Mild intermittent -- Mild persistent -- Moderate persistent -- Severe persistent -- Exercise induced bronchospasm -- Cough variant asthma -- Other, please specify PLEASE DOCUMENT ANY ADDITIONAL DIAGNOSES AND/OR SPECIFICITY IN THE PROGRESS NOTES AND/OR DISCHARGE CHANG MMARY. Clinically unable to determine/unknown Disagree with the above request Need to discuss Query created by: Nataliya Mabry on 11/28/2018 3:37 PM Electronically signed by: Donovan Zaragoza MD 11/28/2018 5:44 PM
== END 2018-11-25 14:40 | disposition home or self-care (01) | DRG 588 ==
LOC: ED 17:41 → ERH 21:55 → 2RSO 23:18 → OBSVTOIN 11-22 13:43 → 5RNO 11-24 13:46
PROVIDERS: ADMIT Internal Medicine; ATTEND Internal Medicine
DX: J20.9 Acute bronchitis, unspecified (principal); I50.30 Unspecified diastolic (congestive) heart failure; R09.02 Hypoxemia; E11.22 Type 2 diabetes mellitus with diabetic chronic kidney disease; N39.0 Urinary tract infection, site not specified; I13.0 Hypertensive heart and chronic kidney disease with heart failure and stage 1 through stage 4 chronic kidney disease, or unspecified chronic kidney disease; E87.8 Other disorders of electrolyte and fluid balance, not elsewhere classified; E11.65 Type 2 diabetes mellitus with hyperglycemia; N18.9 Chronic kidney disease, unspecified; J45.909 Unspecified asthma, uncomplicated; Z68.44 Body mass index [BMI] 60.0-69.9, adult; Z98.84 Bariatric surgery status; E66.01 Morbid (severe) obesity due to excess calories; Z99.81 Dependence on supplemental oxygen; D64.9 Anemia, unspecified; E78.00 Pure hypercholesterolemia, unspecified; E78.5 Hyperlipidemia, unspecified; E83.42 Hypomagnesemia; Z79.84 Long term (current) use of oral hypoglycemic drugs; Z79.899 Other long term (current) drug therapy; Z82.49 Family history of ischemic heart disease and other diseases of the circulatory system; Z87.01 Personal history of pneumonia (recurrent); Z98.891 History of uterine scar from previous surgery

== ENCOUNTER 2018-12-04 09:30 | Outpatient (CLI) | payer MEDICAID | END 2018-12-04 09:31 | disposition home or self-care (01) | LOC: CARDIO 09:30 ==